=== PATIENT | male | born 1945 | race Caucasian/White ===

== ENCOUNTER → 2017-01-06 | Outpatient (CLI) | payer MEDICARE, OTHER ==
[2017-01-06 13:57] LABS: CREATININE 1.1 mg/dL (0.6-1.3)
[2017-01-06 13:58] LABS: ESTIMATED GFR (MDRD EQUATION) > 60
== END | disposition disaster alternative care site (69) ==
LOC: GLAB 12:53
PROVIDERS: Urology
DX: R97.20 Elevated prostate specific antigen [PSA] (principal)
CPT/HCPCS: A9577